=== PATIENT | female | born 1985 | race Caucasian/White ===

== ENCOUNTER 2023-08-04 04:43 | Emergency (ER) | payer OTHER ==
[~2023-08-04] VITALS: Ht 175.3 cm; Wt 88.1 kg
[2023-08-04] MEDS: IBUPROFEN 600MG TAB PO ONE (05:32)
[2023-08-04] MEDS: NS 1,000 ML IV ONE ×2 (05:33→07:20)
[2023-08-04 05:47] LABS: HEMATOCRIT 34.2 % (36.0-47.0); MEAN CORPUSCULAR HEMOGLOBIN 32.3 pg (27.0-33.0); MEAN CORPUSCULAR HGB CONC 35.1 g/dl (32.0-36.5); MEAN CORPUSCULAR VOLUME 92.2 fl (80.0-96.0); PLATELET COUNT, AUTOMATED 171 10^3/uL (150-450); RED BLOOD COUNT 3.71 10^6/uL (4.00-5.40); WHITE BLOOD COUNT 6.8 10^3/uL (4.0-10.0)
[2023-08-04 06:06] LABS: ALBUMIN 3.7 G/DL (3.2-5.2); BILIRUBIN,DIRECT 0.3 MG/DL (<0.4); BILIRUBIN,TOTAL 1.1 MG/DL (0.3-1.2); BLOOD UREA NITROGEN 16 MG/DL (9-23); CARBON DIOXIDE LEVEL 24 MMOL/L (20-31); CHLORIDE LEVEL 101 MMOL/L (98-107); CREATININE FOR GFR 0.68 MG/DL (0.55-1.30); GLOMERULAR FILTRATION RATE > 60.0 (>60); GLUCOSE, FASTING 145 MG/DL (60-100); POTASSIUM SERUM 4.3 MMOL/L (3.5-5.1); SODIUM LEVEL 133 MMOL/L (136-145); TOTAL PROTEIN 6.8 G/DL (5.7-8.2)
[2023-08-04] MEDS ORDERED: ISOVUE-370 76% 100ML VIAL As Ordered ONE (06:09)
[2023-08-04] MEDS: ONDANSETRON 4MG 2ML VIAL IV ONE (06:15)
[2023-08-04] MEDS: MORPHINE 4 MG/ML 1ML VIAL IV ONE (06:22)
[2023-08-04] MEDS: ACETAMINOPHEN TAB 650MG DOSE (2X325MG) PO ONE (07:48)
[2023-08-04 07:51] LABS: ATYPICAL LYMPH 1 % (0-5); LYMPHOCYTES 2 % (16-44); MONOCYTES 2 % (0-5); NEUTROPHILS 92 % (28-66)
[2023-08-04 07:53] LABS: PLATELET ESTIMATE NORMAL (NORMAL)
[2023-08-04] MEDS: PIPERACILLIN/TAZOBACTAM SOD 4.5 GM in D5W MINI-BAG PLUS 50 ML IV ONE (09:16)
[2023-08-04 09:36] LABS: PROCALCITONIN 0.13 ng/ml
[2023-08-04] MEDS: NS 1,000 ML IV SCH (10:40)
[2023-08-04] MEDS: MORPHINE 2 MG/ML 1ML VIAL IV ONE (11:10)
[2023-08-04] MEDS: KETOROLAC 30 MG/ML 1ML VIAL IV ONE (11:10)
[2023-08-04 11:28] VITALS: BP 102/54; TEMP 98.7; O2SAT 96
== END 2023-08-04 11:32 | disposition short-term general hospital (02) ==
LOC: M ED 04:43
DX: R50.82 Postprocedural fever (principal); G89.18 Other acute postprocedural pain
CPT/HCPCS: 71045; 74177; 80048; 80076; 81001; 83605; 83690; 84145; 85007; 85027; 86140; 87040; 87486; 87581; 87633; 87798; 96361; 96365; 96374; 96375; 99285; J1885; J2405; J2543; Q9967

== ENCOUNTER → 2023-11-08 | Outpatient (REF) | payer OTHER | LOC: M LAB REF 16:13 | PROVIDERS: ATTEND Internal Medicine | DX: N39.0 Urinary tract infection, site not specified (principal) ==